=== PATIENT | male | born 1960 | race Caucasian/White ===

== ENCOUNTER 2016-03-19 | Outpatient (CLI) | END 2016-03-19 13:37 | disposition EMS.NT ==

== ENCOUNTER 2016-03-26 16:26 | Emergency (ER) | payer MEDICAID | END 2016-03-26 19:25 | disposition home or self-care (01) | DX: R10.9 Unspecified abdominal pain (principal); I10 Essential (primary) hypertension; F17.200 Nicotine dependence, unspecified, uncomplicated; Z87.828 Personal history of other (healed) physical injury and trauma ==

== ENCOUNTER 2016-06-26 20:47 | Emergency (ER) | payer MEDICAID ==
[2016-06-26] MEDS ORDERED: LORazepam 0.5 MG TABLET PO STA (21:57)
[2016-06-26] MEDS ORDERED: LORazepam 0.5 MG TABLET ONE (21:58)
== END 2016-06-26 22:36 | disposition home or self-care (01) ==
DX: M54.2 Cervicalgia (principal); I10 Essential (primary) hypertension; I85.00 Esophageal varices without bleeding; Z86.73 Personal history of transient ischemic attack (TIA), and cerebral infarction without residual deficits; Z86.010 Personal history of colon polyps; Z87.19 Personal history of other diseases of the digestive system; F17.200 Nicotine dependence, unspecified, uncomplicated
CPT/HCPCS: 99283; A9270

== ENCOUNTER 2016-07-18 14:48 | Outpatient (CLI) | payer MEDICAID | END 2016-07-18 14:49 | disposition critical access hospital (66) | DX: R51 Headache (principal); R42 Dizziness and giddiness | CPT/HCPCS: A0425; A0429 ==

== ENCOUNTER 2016-07-18 15:20 | Emergency (ER) | payer MEDICAID ==
[2016-07-18] MEDS ORDERED: LORazepam 0.5 MG TABLET PO STA (15:38)
[2016-07-18] MEDS ORDERED: LORazepam 0.5 MG TABLET ONE (15:46)
== END 2016-07-18 16:11 | disposition home or self-care (01) ==
DX: R51 Headache (principal); M54.2 Cervicalgia; I10 Essential (primary) hypertension; Z86.73 Personal history of transient ischemic attack (TIA), and cerebral infarction without residual deficits; I85.00 Esophageal varices without bleeding; Z86.010 Personal history of colon polyps; F17.200 Nicotine dependence, unspecified, uncomplicated
CPT/HCPCS: 99283; A9270

== ENCOUNTER 2016-07-20 09:42 | Outpatient (CLI) | payer MEDICAID | END 2016-07-20 09:43 | disposition short-term general hospital (02) | DX: R06.00 Dyspnea, unspecified (principal); R51 Headache | CPT/HCPCS: A0425; A0429 ==

== ENCOUNTER 2016-08-02 19:36 | Outpatient (CLI) | payer MEDICAID | END 2016-08-02 19:37 | disposition short-term general hospital (02) | DX: R42 Dizziness and giddiness (principal); H54.7 Unspecified visual loss; R25.2 Cramp and spasm | CPT/HCPCS: A0425; A0429; A0888 ==

== ENCOUNTER 2016-08-04 00:50 | Outpatient (CLI) | payer MEDICAID | END 2016-08-04 00:51 | disposition short-term general hospital (02) | LOC: EMS 00:50 | PROVIDERS: ATTEND Surgery | DX: R51 Headache (principal); R11.0 Nausea | CPT/HCPCS: A0425; A0429; A0888 ==

== ENCOUNTER 2016-09-27 11:00 | Outpatient (CLI) | payer MEDICAID | END 2016-09-27 11:15 | disposition home or self-care (01) | LOC: RT.N 11:00 | PROVIDERS: ATTEND Family Medicine | DX: R00.2 Palpitations (principal); R55 Syncope and collapse | CPT/HCPCS: 93005 ==

== ENCOUNTER 2016-12-06 09:15 | Outpatient (CLI) | payer MEDICAID | END 2016-12-06 09:30 | disposition home or self-care (01) | LOC: RT.N 09:15 | PROVIDERS: ATTEND Family Medicine | DX: Z01.818 Encounter for other preprocedural examination (principal); R55 Syncope and collapse; R42 Dizziness and giddiness; M50.10 Cervical disc disorder with radiculopathy, unspecified cervical region | CPT/HCPCS: 93005 ==

== ENCOUNTER 2016-12-06 09:54 | Outpatient (CLI) | payer MEDICAID ==
[2016-12-06 14:40] LABS: ALBUMIN/GLOBULIN RATIO 1.4 (1.0-2.2); BILIRUBIN,TOTAL 1.2 mg/dL (0.2-1.0); CALCIUM 8.7 mg/dL (8.5-10.3); CREATININE 0.8 mg/dL (0.6-1.2); POTASSIUM 3.9 mmol/L (3.5-5.0); TOTAL PROTEIN 7.1 g/dL (6.7-8.2)
[2016-12-06 14:57] LABS: CHOL/HDL RATIO 3.1 (<5.0); CHOLESTEROL 169 mg/dL; HDL CHOLESTEROL 54 mg/dL; LDL/HDL RATIO 1.7 (<3.6); TRIGLYCERIDES 105 mg/dL; VLDL CHOLESTEROL 21 mg/dL
[2016-12-06 19:33] LABS: PT - PROTHROMBIN TIME 10.8 secs (9.9-12.6)
[2016-12-06 19:35] LABS: BASOPHILS # (AUTO) 0.1 10^3/uL (0.0-0.1); BASOPHILS % (AUTO) 0.7 %; EOSINOPHILS # (AUTO) 0.3 10^3/uL (0.0-0.7); EOSINOPHILS % (AUTO) 3.4 %; HCT - HEMATOCRIT 50.3 % (42.0-52.0); HGB - HEMOGLOBIN 16.9 g/dL (14.0-18.0); LYMPHOCYTES # (AUTO) 1.4 10^3/uL (1.5-3.5); LYMPHOCYTES % (AUTO) 16.7 %; MEAN CORPUSCULAR HEMOGLOBIN 31.5 pg (27.0-31.0); MEAN CORPUSCULAR HGB CONC 33.5 g/dL (32.0-36.0); MEAN CORPUSCULAR VOLUME 93.9 fL (80.0-94.0); MEAN PLATELET VOLUME 9.7 fL (7.4-11.4); MONOCYTES # (AUTO) 0.6 10^3/uL (0.0-1.0); MONOCYTES % (AUTO) 7.4 %; NEUTROPHILS # (AUTO) 5.8 10^3/uL (1.5-6.6); NEUTROPHILS % (AUTO) 71.8 %; NUCLEATED RED BLOOD CELLS AUTO 0.1 /100WBC; RED BLOOD COUNT 5.36 10^6/uL (4.70-6.10); RED CELL DISTRIBUTION WIDTH 13.4 % (12.0-15.0); UNCORRECTED WHITE BLOOD COUNT 8.1 x10^3/uL; WHITE BLOOD COUNT 8.1 x10^3/uL (4.8-10.8)
[2016-12-06 19:43] LABS: PARTIAL THROMBOPLASTIN TIME 26.7 secs (24.9-33.3)
== END 2016-12-06 09:55 | disposition home or self-care (01) ==
LOC: LAB.N 09:54
PROVIDERS: ATTEND Family Medicine
DX: Z01.818 Encounter for other preprocedural examination (principal); M50.10 Cervical disc disorder with radiculopathy, unspecified cervical region; I10 Essential (primary) hypertension; R55 Syncope and collapse; R42 Dizziness and giddiness; F17.200 Nicotine dependence, unspecified, uncomplicated
CPT/HCPCS: 36415; 71020; 80053; 80061; 85025; 85610; 85730

== ENCOUNTER 2016-12-06 09:58 | Outpatient (CLI) | payer MEDICAID ==
--- NOTE | 2016-12-06 18:52 | XRAY Report ---
CHEST, TWO VIEWS: 12/06/2016 HISTORY: Preop. COMPARISON: 03/26/2016 FINDINGS: The lungs are clear. There is no pleural fluid or pneumothorax. Heart size normal. Nega tive bony structures. IMPRESSION: NEGATIVE TWO-VIEW CHEST X-RAY. JOB #: [id number] EXT JOB #:[id number]
== END 2016-12-06 09:59 | disposition home or self-care (01) ==
LOC: DI.N 09:58
PROVIDERS: ATTEND Family Medicine
DX: Z01.818 Encounter for other preprocedural examination (principal); M50.10 Cervical disc disorder with radiculopathy, unspecified cervical region; R55 Syncope and collapse; R42 Dizziness and giddiness
CPT/HCPCS: 71020

== ENCOUNTER 2017-11-08 10:52 | Outpatient (CLI) | payer MEDICAID | END 2017-11-08 10:53 | disposition critical access hospital (66) | LOC: EMS 10:52 | PROVIDERS: ATTEND Surgery | DX: R07.9 Chest pain, unspecified (principal); R53.1 Weakness | CPT/HCPCS: A0425; A0427; A0999 ==

== ENCOUNTER 2017-11-08 11:21 | Emergency (ER) | payer MEDICAID ==
[2017-11-08 12:43] LABS: BASOPHILS % (AUTO) 0.6 %; EOSINOPHILS # (AUTO) 0.3 10^3/uL (0.0-0.7); EOSINOPHILS % (AUTO) 3.4 %; HGB - HEMOGLOBIN 17.3 g/dL (14.0-18.0); LYMPHOCYTES # (AUTO) 1.2 10^3/uL (1.5-3.5); LYMPHOCYTES % (AUTO) 14.8 %; MEAN CORPUSCULAR HEMOGLOBIN 32.6 pg (27.0-31.0); MEAN CORPUSCULAR HGB CONC 34.7 g/dL (32.0-36.0); MEAN PLATELET VOLUME 8.6 fL (7.4-11.4); MONOCYTES # (AUTO) 0.6 10^3/uL (0.0-1.0); MONOCYTES % (AUTO) 8.1 %; NEUTROPHILS # (AUTO) 5.7 10^3/uL (1.5-6.6); NEUTROPHILS % (AUTO) 73.1 %; PLT - PLATELET COUNT 155 10^3/uL (130-450); RED BLOOD COUNT 5.29 10^6/uL (4.70-6.10); RED CELL DISTRIBUTION WIDTH 13.6 % (12.0-15.0); WHITE BLOOD COUNT 7.8 x10^3/uL (4.8-10.8)
[2017-11-08 12:58] LABS: ALBUMIN 3.9 g/dL (3.2-5.5); ALBUMIN/GLOBULIN RATIO 1.3 (1.0-2.2); CALCIUM 9.2 mg/dL (8.5-10.3); CREATININE 0.9 mg/dL (0.6-1.2); TOTAL PROTEIN 6.8 g/dL (6.7-8.2)
--- NOTE | 2017-11-08 13:30 | XRAY Report ---
Reason: CP Procedure Date: 11/08/2017 Accession Number: [id number] / [id number] Procedure: XR - Chest 2 View X-Ray CPT Code: 87601 FULL RESULT: EXAM: CHEST RADIOGRAPHY EXAM DATE: 11/08/2017 12:52 PM. CLINICAL HISTORY: Chest pain. COMPARISON: 12/06/2016. TECHNIQUE: 2 views. FINDINGS: Lungs/Pleura: No focal opacities evident. No pleural effusion. No pneumothorax. Normal volumes. Mediastinum: Heart and mediastinal contours are unremarkable. Other: Postoperative changes are present in the lower cervical spine. IMPRESSION: 1. No acute pulmonary process. RADIA
[2017-11-08] MEDS ORDERED: ACETAMINOPHEN 500 MG TABLET PO STA (14:40)
[2017-11-08] MEDS ORDERED: GI COCKTAIL 120 ML BOTTLE PO ONE (15:00)
--- NOTE | 2017-11-08 15:45 | ED Physician Documentation ---
PD HPI CHEST PAIN - Stated complaint Stated Complaint: CHEST PAIN - Chief complaint Chief Complaint: Abd Pain - History obtained from History obtained from: Patient - Additional information Additional information: 57-year-old male presents the emergency department with intermittent episodes of sharp chest pain over the past 2 days. The patient had an episode yesterday morning which occurs suddenly and resolved spontaneously. The patient had another episode earlier this morning after drinking coffee and reported a sharp stabbing pain with a hard heartbeat. The patient currently has no pain in the sensation of palpitations have resolved. The patient denies diaphoresis, radiation, dyspnea on exertion, URI symptoms, shortness of breath or fever. Symptoms are described as moderate when they occurred. Presently the patient has no active symptoms. No other associated symptoms Review of Systems Constitutional: denies: Fever, Chills Eyes: denies: Discharge Ears: denies: Ear pain Nose: denies: Congestion Throat: denies: Sore throat Cardiac: reports: Chest pain / pressure, Palpitations Respiratory: denies: Dyspnea, Cough, Wheezing GI: denies: Abdominal Pain, Nausea, Vomiting : denies: Dysuria Skin: denies: Rash Musculoskeletal: denies: Neck pain Neurologic: denies: Generalized weakness Immunocompromised: denies: Chemotherapy PD PAST MEDICAL HISTORY - Past Medical History Cardiovascular: Hypertension Respiratory: None Neuro: CVA Endocrine/Autoimmune: None GI: GERD, Colon polyps, Diverticulitis : None HEENT: None Psych: Anxiety Musculoskeletal: None - Past Surgical History Past Surgical History: Yes General: Colonoscopy, Other Ortho: Spine surgery Cardiovascular: Vascular surgery - Present Medications Home Medications: Ambulatory Orders Medication Instructions Recorded Confirmed Lisinopril 5 mg PO DAILY 01/31/16 07/18/16 Aspirin [Adult Aspirin Regimen] 1 tab PO DAILY 11/08/17 11/08/17 - Allergies Allergies/Adverse Reactions: Allergies Allergy/AdvReac Type Severity Reaction Status Date / Time bupropion AdvReac Nausea Verified 11/08/17 11:31 citalopram AdvReac Nausea Verified 11/08/17 11:31 fluoxetine AdvReac Nausea Verified 11/08/17 11:31 - Social History Does the pt smoke?: Yes Smoking Status: Current every day smoker Does the pt drink ETOH?: Yes Does the pt have substance abuse?: No - Immunizations Immunizations are current?: Yes - POLST Patient has POLST: No PD ED PE NORMAL - General General: Alert and oriented X 3, No acute distress - HEENT HEENT: Atraumatic, PERRL, EOMI, Ears normal, Moist mucous membranes - Neck Neck: Supple, no meningeal sign - Cardiac Cardiac: RRR, Strong equal pulses - Respiratory Respiratory: No respiratory distress, Clear bilaterally - Abdomen Abdomen: Soft - Derm Derm: Normal color, No rash - Extremities Extremities: No deformity, No tenderness to palpate, Normal ROM s pain - Neuro Neuro: Alert and oriented X 3, No motor deficit - Psych Psych: Normal mood Results - Vitals Vitals: Vital Signs - 24 hr 11/08/17 11/08/17 11/08/17 11:22 12:03 13:27 Temperature 36.6 C Heart Rate 74 75 73 Respiratory 18 16 16 Rate Blood Pressure 176/116 H 154/106 H 148/103 H O2 Saturation 95 96 11/08/17 11/08/17 14:37 15:00 Temperature Heart Rate 71 68 Respiratory 16 16 Rate Blood Pressure 180/99 H 152/112 H O2 Saturation 97 95 Oxygen O2 Source Room air - EKG (time done) 11:28 PM Rate: Rate (enter#) Rhythm: NSR Intervals: Normal AL, QRS normal QRS: Normal Ischemia: Normal ST segments Other comments: Other comments (Normal sinus rhythm with no acute ischemic changes) - Labs Labs: Laboratory Tests 11/08/17 11/08/17 11/08/17 12:38 12:38 12:38 WBC 7.8 RBC 5.29 Hgb 17.3 Hct 49.8 MCV 94.0 MCH 32.6 H MCHC 34.7 RDW 13.6 Plt Count 155 MPV 8.6 Neut # (Auto) 5.7 Lymph # (Auto) 1.2 L [place] # (Auto) 0.6 Eos # (Auto) 0.3 Baso # (Auto) 0.0 Absolute Nucleated RBC 0.00 Nucleated RBC % 0.0 D-Dimer Sodium 139 Potassium 4.5 Chloride 104 Carbon Dioxide 27 Anion Gap 8.0 BUN 14 Creatinine 0.9 Estimated GFR (MDRD) 87 L Glucose 105 H Calcium 9.2 Total Bilirubin 1.0 AST 20 ALT 21 Alkaline Phosphatase 72 Troponin I < 0.04 Total Protein 6.8 Albumin 3.9 Globulin 2.9 Albumin/Globulin Ratio 1.3 Lipase 26 11/08/17 11/08/17 12:38 15:20 WBC RBC Hgb Hct MCV MCH MCHC RDW Plt Count MPV Neut # (Auto) Lymph # (Auto) [place] # (Auto) Eos # (Auto) Baso # (Auto) Absolute Nucleated RBC Nucleated RBC % D-Dimer < 200.0 L Sodium Potassium Chloride Carbon Dioxide Anion Gap BUN Creatinine Estimated GFR (MDRD) Glucose Calcium Total Bilirubin AST ALT Alkaline Phosphatase Troponin I < 0.04 Total Protein Albumin Globulin Albumin/Globulin Ratio Lipase - Rads (name of study) Chext XR Radiology: Final report received (1. No acute pulmonary process. ) PD MEDICAL DECISION MAKING - ED course ED course: The patient's workup does not reveal an acute etiology to explain his pain. The patient is on the low risk side per the heart score, the patient also had a stress test within the last 12 months at an outside facility that according to him was negative. The patient currently would prefer further workup as an outpatient. I recommended that he will need a repeat stress test to rule out coronary artery disease. The patient understands and agrees. Also, I suggested that this may be secondary to gastric etiology. The patient understands and agrees. I discussed warning signs and recommended returning to the emergency department immediately for worsening or any concerns. - Sepsis Event Vital Signs: Vital Signs - 24 hr 11/08/17 11/08/17 11/08/17 11:22 12:03 13:27 Temperature 36.6 C Heart Rate 74 75 73 Respiratory 18 16 16 Rate Blood Pressure 176/116 H 154/106 H 148/103 H O2 Saturation 95 96 11/08/17 11/08/17 14:37 15:00 Temperature Heart Rate 71 68 Respiratory 16 16 Rate Blood Pressure 180/99 H 152/112 H O2 Saturation 97 95 Oxygen O2 Source Room air Departure - Departure Disposition: Home, Self Care Clinical Impression: Chest pain Qualifiers: Chest pain type: unspecified Qualified Code(s): R07.9 - Chest pain, unspecified Condition: Good Instructions: ED Chest Pain [facility] Follow-Up: Manjeet Angel MD [Primary Care Provider] - Within 3 Days (Please ask your primary care physician to arrange for an outpatient stress test, echocardiogram and possibly referral to GI for endoscopy.) Comments: Please return to the emergency department immediately for worsening symptoms or any concerns
[2017-11-08 16:37] VITALS: BP 144/102
== END 2017-11-08 16:42 | disposition home or self-care (01) ==
LOC: EDUNIT# → ED 11:21
DX: R07.9 Chest pain, unspecified (principal); I10 Essential (primary) hypertension; F17.200 Nicotine dependence, unspecified, uncomplicated
CPT/HCPCS: 36415; 71046; 80053; 83690; 84484; 85025; 85379; 93005; 99284; A9270

== ENCOUNTER 2017-12-18 09:46 | Outpatient (CLI) | payer MEDICAID ==
[2017-12-18 13:09] LABS: ALBUMIN 4.1 g/dL (3.2-5.5); ALBUMIN/GLOBULIN RATIO 1.4 (1.0-2.2); ALKALINE PHOSPHATASE 83 IU/L (42-121); ALT ALANINE AMINOTRANSFERASE 31 IU/L (10-60); AST ASPARTATE AMINOTRANSFERASE 23 IU/L (10-42); BUN - BLOOD UREA NITROGEN 15 mg/dL (6-20); CALCIUM 8.9 mg/dL (8.5-10.3); CARBON DIOXIDE - CO2 24 mmol/L (21-32); CHLORIDE 104 mmol/L (101-111); CHOL/HDL RATIO 2.7 (<5.0); CHOLESTEROL 145 mg/dL; CREATININE 0.9 mg/dL (0.6-1.2); GFR - MDRD 87 (>89); GLUCOSE 98 mg/dL (70-100); HDL CHOLESTEROL 53 mg/dL; LDL CHOLESTEROL,CALCULATED 68 mg/dL; LDL/HDL RATIO 1.3 (<3.6); LIPASE 28 U/L (22-51); SODIUM 137 mmol/L (135-145); TOTAL PROTEIN 7.1 g/dL (6.7-8.2); VLDL CHOLESTEROL 24 mg/dL
[2017-12-18 13:10] LABS: BASOPHILS % (AUTO) 0.5 %; EOSINOPHILS # (AUTO) 0.3 10^3/uL (0.0-0.7); EOSINOPHILS % (AUTO) 2.9 %; HGB - HEMOGLOBIN 17.9 g/dL (14.0-18.0); LYMPHOCYTES # (AUTO) 1.5 10^3/uL (1.5-3.5); LYMPHOCYTES % (AUTO) 17.3 %; MEAN CORPUSCULAR HEMOGLOBIN 33.3 pg (27.0-31.0); MEAN CORPUSCULAR VOLUME 95.2 fL (80.0-94.0); MEAN PLATELET VOLUME 9.1 fL (7.4-11.4); MONOCYTES # (AUTO) 0.6 10^3/uL (0.0-1.0); MONOCYTES % (AUTO) 7.3 %; NEUTROPHILS # (AUTO) 6.3 10^3/uL (1.5-6.6); PLT - PLATELET COUNT 150 10^3/uL (130-450); RED BLOOD COUNT 5.36 10^6/uL (4.70-6.10); RED CELL DISTRIBUTION WIDTH 13.6 % (12.0-15.0); WHITE BLOOD COUNT 8.7 x10^3/uL (4.8-10.8)
== END 2017-12-18 09:47 | disposition home or self-care (01) ==
LOC: LAB.WCP 09:46
PROVIDERS: ATTEND Physician Assistant Medical
DX: Z00.00 Encounter for general adult medical examination without abnormal findings (principal); R10.13 Epigastric pain
CPT/HCPCS: 36415; 80050; 80061; 83690; 83721

== ENCOUNTER 2017-12-30 05:07 | Outpatient (CLI) | payer MEDICAID | END 2017-12-30 05:08 | disposition short-term general hospital (02) | LOC: EMS 05:07 | PROVIDERS: ATTEND Surgery | DX: R09.89 Other specified symptoms and signs involving the circulatory and respiratory systems (principal); K14.6 Glossodynia | CPT/HCPCS: A0425; A0427; A0888; A0999 ==

== ENCOUNTER 2018-06-04 08:00 | Outpatient (CLI) | payer MEDICAID ==
[2018-06-04 19:07] LABS: BASOPHILS % (AUTO) 0.5 %; EOSINOPHILS # (AUTO) 0.3 10^3/uL (0.0-0.7); EOSINOPHILS % (AUTO) 3.2 %; HGB - HEMOGLOBIN 17.4 g/dL (14.0-18.0); LYMPHOCYTES # (AUTO) 1.6 10^3/uL (1.5-3.5); LYMPHOCYTES % (AUTO) 17.1 %; MEAN CORPUSCULAR HEMOGLOBIN 31.2 pg (27.0-31.0); MEAN CORPUSCULAR HGB CONC 33.6 g/dL (32.0-36.0); MEAN CORPUSCULAR VOLUME 92.9 fL (80.0-94.0); MEAN PLATELET VOLUME 9.5 fL (7.4-11.4); MONOCYTES # (AUTO) 0.8 10^3/uL (0.0-1.0); MONOCYTES % (AUTO) 8.9 %; NEUTROPHILS # (AUTO) 6.5 10^3/uL (1.5-6.6); NEUTROPHILS % (AUTO) 70.3 %; PLT - PLATELET COUNT 167 10^3/uL (130-450); RED BLOOD COUNT 5.58 10^6/uL (4.70-6.10); RED CELL DISTRIBUTION WIDTH 12.9 % (12.0-15.0); WHITE BLOOD COUNT 9.2 x10^3/uL (4.8-10.8)
[2018-06-04 19:35] LABS: ALBUMIN 4.3 g/dL (3.2-5.5); BILIRUBIN,DIRECT 0.3 mg/dL (0.1-0.5); BILIRUBIN,TOTAL 0.8 mg/dL (0.2-1.0)
== END 2018-06-04 23:59 | disposition home or self-care (01) ==
LOC: LAB.N 08:00
PROVIDERS: ATTEND Physician Assistant Medical
DX: R10.11 Right upper quadrant pain (principal); F10.10 Alcohol abuse, uncomplicated
CPT/HCPCS: 36415; 80076; 85025

== ENCOUNTER 2018-09-21 19:21 | Outpatient (CLI) | payer MEDICAID | END 2018-09-21 19:22 | disposition short-term general hospital (02) | LOC: EMS 19:21 | PROVIDERS: ATTEND Surgery | DX: R22.0 Localized swelling, mass and lump, head (principal); R11.0 Nausea | CPT/HCPCS: A0425; A0427; A0999 ==

== ENCOUNTER 2018-09-28 12:56 | Outpatient (CLI) | payer MEDICAID | END 2018-09-28 12:57 | disposition short-term general hospital (02) | LOC: EMS 12:56 | PROVIDERS: ATTEND Surgery | DX: R22.0 Localized swelling, mass and lump, head (principal) | CPT/HCPCS: A0425; A0427 ==

== ENCOUNTER 2019-01-07 20:49 | Outpatient (CLI) | payer MEDICAID | END 2019-01-07 20:50 | disposition short-term general hospital (02) | LOC: EMS 20:49 | PROVIDERS: ATTEND Surgery | DX: R20.0 Anesthesia of skin (principal); R42 Dizziness and giddiness; M54.2 Cervicalgia; R51 Headache | CPT/HCPCS: A0425; A0429; A0999 ==

== ENCOUNTER 2019-03-19 05:55 | Outpatient (CLI) | payer MEDICARE, MEDICAID | END 2019-03-19 05:56 | disposition short-term general hospital (02) | LOC: EMS 05:55 | PROVIDERS: ATTEND Surgery | DX: R22.0 Localized swelling, mass and lump, head (principal) | CPT/HCPCS: A0425; A0429 ==

== ENCOUNTER 2019-04-01 08:41 | Outpatient (CLI) | payer MEDICARE, MEDICAID | END 2019-04-01 08:42 | disposition critical access hospital (66) | LOC: EMS 08:41 | PROVIDERS: ATTEND Surgery | DX: R60.0 Localized edema (principal) | CPT/HCPCS: A0425; A0427 ==

== ENCOUNTER 2019-04-01 09:11 | Emergency (ER) | payer MEDICARE, MEDICAID ==
--- NOTE | 2019-04-01 09:59 | ED Physician Documentation ---
PD HPI HEENT - Stated complaint Stated Complaint: ALLERGIC RX - Chief complaint Chief Complaint: Allergic Rx - History obtained from History obtained from: Patient - History of Present Illness Timing - onset: Last night Timing - details: Waxing and waning Location: Throat (feeling of swelling of left lower lip, lateral tongue and some to back of throat last night, then improved but feeling some swelling again today. Took Benadryl and feels it helped some.), Mouth Associated symptoms: No: Fever, Congestion, Swollen nodes Similar symptoms before: Diagnosis (had marked angioedema in the past, but was thought to be from Lisinopril he was taking at the time. That med was discontinued. He is on HCTZ.) Recently seen: Clinic (he says he saw an annual giving officer after last episode couple months ago, and told to take benadryl if happens. No allergy testing done, per patient.) Review of Systems Constitutional: denies: Fever Nose: reports: Other (mild edema left lower lip, uvula and lateral left side of tongue. He is able to talk and breath normally.). denies: Rhinorrhea / runny nose, Congestion, Sinus pressure / pain Throat: denies: Sore throat Respiratory: denies: Dyspnea, Cough GI: denies: Abdominal Pain, Nausea, Vomiting, Diarrhea Musculoskeletal: denies: Neck pain, Back pain PD PAST MEDICAL HISTORY - Past Medical History Past Medical History: Yes Cardiovascular: Hypertension Respiratory: None Neuro: CVA Endocrine/Autoimmune: None GI: GERD, Colon polyps, Diverticulitis : None HEENT: None Psych: Anxiety Musculoskeletal: None - Past Surgical History Past Surgical History: Yes General: Colonoscopy, Other Ortho: Spine surgery Cardiovascular: Vascular surgery - Present Medications Home Medications: Ambulatory Orders Medication Instructions Recorded Confirmed lisinopriL [Lisinopril] 5 mg PO DAILY 01/31/16 07/18/16 Aspirin [Adult Aspirin Regimen] 1 tab PO DAILY 11/08/17 11/08/17 Cetirizine [ZyrTEC] 10 mg PO DAILY #30 tablet 04/01/19 dexAMETHasone [Decadron] 4 mg PO DAILY #5 tablet 04/01/19 - Allergies Allergies/Adverse Reactions: Allergies Allergy/AdvReac Type Severity Reaction Status Date / Time bupropion AdvReac Nausea Verified 11/08/17 11:31 citalopram AdvReac Nausea Verified 11/08/17 11:31 fluoxetine AdvReac Nausea Verified 11/08/17 11:31 - Social History Does the pt smoke?: Yes Smoking Status: Current every day smoker Does the pt drink ETOH?: Yes Does the pt have substance abuse?: No - Immunizations Immunizations are current?: Yes - POLST Patient has POLST: No PD ED PE NORMAL - Vitals Vital signs reviewed: Yes - General General: Alert and oriented X 3, No acute distress, Well developed/nourished - HEENT HEENT: Pharynx benign, Other (mild edema for uvula, left side of tongue and left lower lip. ) - Neck Neck: Supple, no meningeal sign, No adenopathy - Cardiac Cardiac: RRR, No murmur - Respiratory Respiratory: Clear bilaterally - Abdomen Abdomen: Soft, Non tender Results - Vitals Vitals: Vital Signs - 24 hr 04/01/19 04/01/19 04/01/19 09:20 09:44 11:25 Temperature 36.4 C L 36.5 C Heart Rate 140 H 74 71 Respiratory 14 14 18 Rate Blood Pressure 151/115 H 137/102 H 143/103 H O2 Saturation 96 93 95 Oxygen O2 Source Room air - Labs Labs: Laboratory Tests 04/01/19 04/01/19 10:41 10:41 WBC 10.2 RBC 5.29 Hgb 18.0 Hct 51.2 MCV 96.8 H MCH 34.0 H MCHC 35.2 RDW 13.1 Plt Count 145 MPV 10.3 Neut # (Auto) 8.0 H Lymph # (Auto) 1.2 L [place] # (Auto) 0.7 Eos # (Auto) 0.2 Baso # (Auto) 0.0 Absolute Nucleated RBC 0.00 Nucleated RBC % 0.0 Sodium 141 Potassium 3.7 Chloride 105 Carbon Dioxide 27 Anion Gap 9.0 BUN 15 Creatinine 1.1 Estimated GFR (MDRD) 69 L Glucose 98 Calcium 9.2 Magnesium 2.0 Total Bilirubin 0.8 AST 28 ALT 40 Alkaline Phosphatase 56 C-Reactive Protein < 1.0 Total Protein 6.8 Albumin 4.1 Globulin 2.7 Albumin/Globulin Ratio 1.5 Lipase 37 PD MEDICAL DECISION MAKING - ED course Complexity details: re-evaluated patient (feeling improved with less swelling after meds and time. HR improved), considered differential, d/w patient Departure - Departure Disposition: 01 Home, Self Care Clinical Impression: Angioedema Qualifiers: Encounter type: initial encounter Qualified Code(s): T78.3XXA - Angioneurotic edema, initial encounter Condition: Stable Record reviewed to determine appropriate education?: Yes Instructions: ED Angioedema Follow-Up: Sam Patel PA-C [Primary Care Provider] - Prescriptions: Cetirizine [ZyrTEC] 10 mg PO DAILY #30 tablet dexAMETHasone [Decadron] 4 mg PO DAILY #5 tablet Comments: Continue the Decadron for another 5 days if there is still any hint of swelling into tomorrow. Use Benadryl antihistamine every 6 hours if needed for continued swelling. Cetirizine long-acting daily antihistamine daily for 3 to 4 weeks. Follow-up with the annual giving officer you had seen, call for an appointment. With another episode now, the question would be whether to undergo some more general allergy testing or what other potential treatments. Some blood test to try to help distinguish the type of allergic reaction/swelling will result in day or 2 but in the short-term did not change the treatment above. Discharge Date/Time: 04/01/19 13:15
[2019-04-01] MEDS ORDERED: SODIUM CHLORIDE 0.9% 1,000 ML IV ONE (10:15)
[2019-04-01] MEDS ORDERED: diphenhydrAMINE INJ 50 MG/ML VIAL IVP STA (10:16)
[2019-04-01] MEDS ORDERED: KETOROLAC 15 MG/ML VIAL IVP STA (10:16)
[2019-04-01] MEDS ORDERED: DEXAMETHASONE 10 MG/ML VIAL IVP STA (10:16)
[2019-04-01 10:48] LABS: BASOPHILS % (AUTO) 0.4 %; EOSINOPHILS # (AUTO) 0.2 10^3/uL (0.0-0.7); EOSINOPHILS % (AUTO) 1.9 %; LYMPHOCYTES # (AUTO) 1.2 10^3/uL (1.5-3.5); LYMPHOCYTES % (AUTO) 11.6 %; MEAN CORPUSCULAR HGB CONC 35.2 g/dL (32.0-36.0); MEAN CORPUSCULAR VOLUME 96.8 fL (80.0-94.0); MEAN PLATELET VOLUME 10.3 fL (7.4-11.4); MONOCYTES # (AUTO) 0.7 10^3/uL (0.0-1.0); MONOCYTES % (AUTO) 7.2 %; NEUTROPHILS % (AUTO) 78.4 %; PLT - PLATELET COUNT 145 10^3/uL (130-450); RED BLOOD COUNT 5.29 10^6/uL (4.70-6.10); RED CELL DISTRIBUTION WIDTH 13.1 % (12.0-15.0); WHITE BLOOD COUNT 10.2 x10^3/uL (4.8-10.8)
[2019-04-01 11:08] LABS: ALBUMIN 4.1 g/dL (3.2-5.5); ALBUMIN/GLOBULIN RATIO 1.5 (1.0-2.2); ALKALINE PHOSPHATASE 56 IU/L (42-121); ALT ALANINE AMINOTRANSFERASE 40 IU/L (10-60); AST ASPARTATE AMINOTRANSFERASE 28 IU/L (10-42); BILIRUBIN,TOTAL 0.8 mg/dL (0.2-1.0); BUN - BLOOD UREA NITROGEN 15 mg/dL (6-20); CALCIUM 9.2 mg/dL (8.5-10.3); CARBON DIOXIDE - CO2 27 mmol/L (21-32); CHLORIDE 105 mmol/L (101-111); CREATININE 1.1 mg/dL (0.6-1.2); GFR - MDRD 69 (>89); GLUCOSE 98 mg/dL (70-100); LIPASE 37 U/L (22-51); SODIUM 141 mmol/L (135-145); TOTAL PROTEIN 6.8 g/dL (6.7-8.2)
[2019-04-01 11:10] LABS: CRP - C-REACTIVE PROTEIN < 1.0 mg/dL (0-1.0)
[2019-04-01 12:08] VITALS: BP 143/103
[2019-04-03 10:39] LABS: COMPLEMENT COMPONENT C4C 29 mg/dL (15-53)
== END 2019-04-01 13:15 | disposition home or self-care (01) ==
LOC: EDUNIT# → ED 09:11
DX: T78.3XXA Angioneurotic edema, initial encounter (principal); X58.XXXA Exposure to other specified factors, initial encounter; I10 Essential (primary) hypertension; F17.200 Nicotine dependence, unspecified, uncomplicated; Z79.82 Long term (current) use of aspirin
CPT/HCPCS: 36415; 80053; 83690; 83735; 84443; 85025; 86140; 86160; 86161; 96361; 96374; 96375; 99283; 99284; J1200

== ENCOUNTER 2019-04-16 10:53 | Outpatient (CLI) | payer MEDICARE, MEDICAID | END 2019-04-16 10:54 | disposition short-term general hospital (02) | LOC: EMS 10:53 | PROVIDERS: ATTEND Surgery | DX: R09.89 Other specified symptoms and signs involving the circulatory and respiratory systems (principal); R11.0 Nausea | CPT/HCPCS: A0425; A0427; A0888 ==

== ENCOUNTER 2019-06-12 10:35 | Outpatient (CLI) | payer MEDICARE, MEDICAID | END 2019-06-12 10:36 | disposition short-term general hospital (02) | LOC: EMS 10:35 | PROVIDERS: ATTEND Surgery | DX: R22.0 Localized swelling, mass and lump, head (principal) | CPT/HCPCS: A0425; A0427 ==

== ENCOUNTER 2019-06-21 05:22 | Outpatient (CLI) | payer MEDICARE, MEDICAID | END 2019-06-21 05:23 | disposition short-term general hospital (02) | LOC: EMS 05:22 | PROVIDERS: ATTEND Surgery | DX: R60.0 Localized edema (principal) | CPT/HCPCS: A0425; A0427 ==

== ENCOUNTER 2019-07-29 04:26 | Outpatient (CLI) | payer MEDICARE, MEDICAID | END 2019-07-29 04:27 | disposition short-term general hospital (02) | LOC: EMS 04:26 | PROVIDERS: ATTEND Surgery | DX: M79.652 Pain in left thigh (principal); M79.89 Other specified soft tissue disorders | CPT/HCPCS: A0425; A0429; A0888 ==

== ENCOUNTER 2019-08-16 14:10 | Outpatient (CLI) | payer MEDICARE, MEDICAID | END 2019-08-16 14:11 | disposition critical access hospital (66) | LOC: EMS 14:10 | PROVIDERS: ATTEND Surgery | DX: R53.1 Weakness (principal); R42 Dizziness and giddiness; R10.9 Unspecified abdominal pain; Z72.89 Other problems related to lifestyle | CPT/HCPCS: A0425; A0429 ==

== ENCOUNTER 2019-09-06 08:55 | Outpatient (CLI) | payer MEDICARE, MEDICAID | END 2019-09-06 08:56 | disposition short-term general hospital (02) | LOC: EMS 08:55 | PROVIDERS: ATTEND Surgery | DX: R10.811 Right upper quadrant abdominal tenderness (principal); R20.0 Anesthesia of skin; R00.0 Tachycardia, unspecified; F41.9 Anxiety disorder, unspecified; Z72.89 Other problems related to lifestyle | CPT/HCPCS: A0425; A0429 ==

== ENCOUNTER 2019-09-18 06:28 | Outpatient (CLI) | payer MEDICARE, MEDICAID | END 2019-09-18 06:29 | disposition short-term general hospital (02) | LOC: EMS 06:28 | PROVIDERS: ATTEND Surgery | DX: R60.0 Localized edema (principal) | CPT/HCPCS: A0425; A0429 ==

== ENCOUNTER 2019-12-01 19:43 | Outpatient (CLI) | payer MEDICARE, MEDICAID | END 2019-12-01 19:44 | disposition short-term general hospital (02) | LOC: EMS 19:43 | PROVIDERS: ATTEND Surgery | DX: R10.30 Lower abdominal pain, unspecified (principal); Z72.89 Other problems related to lifestyle | CPT/HCPCS: A0425; A0429 ==

== ENCOUNTER 2019-12-26 12:15 | Outpatient (CLI) | payer MEDICARE, MEDICAID | END 2019-12-26 12:16 | disposition short-term general hospital (02) | LOC: EMS 12:15 | PROVIDERS: ATTEND Surgery | DX: R53.1 Weakness (principal) | CPT/HCPCS: A0425; A0429 ==

== ENCOUNTER 2020-03-16 11:54 | Outpatient (CLI) | payer MEDICARE, MEDICAID ==
[2020-03-16 19:07] LABS: INR 1.2 (0.8-1.2); PT - PROTHROMBIN TIME 12.8 secs (9.9-12.6)
[2020-03-16 19:11] LABS: ALBUMIN 3.2 g/dL (3.2-5.5); ALBUMIN/GLOBULIN RATIO 0.9 (1.0-2.2); BILIRUBIN,TOTAL 1.5 mg/dL (0.2-1.0); CALCIUM 9.1 mg/dL (8.5-10.3); TOTAL PROTEIN 6.6 g/dL (6.7-8.2)
[2020-03-16 19:22] LABS: BASOPHILS % (AUTO) 0.5 %; EOSINOPHILS # (AUTO) 0.2 10^3/uL (0.0-0.7); EOSINOPHILS % (AUTO) 2.6 %; HGB - HEMOGLOBIN 14.4 g/dL (14.0-18.0); LYMPHOCYTES # (AUTO) 1.5 10^3/uL (1.5-3.5); LYMPHOCYTES % (AUTO) 17.4 %; MEAN CORPUSCULAR HEMOGLOBIN 32.3 pg (27.0-31.0); MEAN CORPUSCULAR HGB CONC 32.6 g/dL (32.0-36.0); MEAN CORPUSCULAR VOLUME 99.1 fL (80.0-94.0); MEAN PLATELET VOLUME 11.2 fL (7.4-11.4); MONOCYTES # (AUTO) 0.7 10^3/uL (0.0-1.0); MONOCYTES % (AUTO) 8.7 %; NEUTROPHILS # (AUTO) 5.9 10^3/uL (1.5-6.6); NEUTROPHILS % (AUTO) 70.4 %; PLT - PLATELET COUNT 132 10^3/uL (130-450); RED BLOOD COUNT 4.46 10^6/uL (4.70-6.10); WHITE BLOOD COUNT 8.4 x10^3/uL (4.8-10.8)
[2020-03-16 19:28] LABS: FERRITIN 205.9 ng/mL (23.9-336.2)
[2020-03-17 12:27] LABS: HEPATITIS C ANTIBODY NON-REACTIVE (NON-REACTIVE)
== END 2020-03-16 23:59 | disposition home or self-care (01) ==
LOC: LAB.R 11:54
PROVIDERS: ATTEND Internal Medicine
DX: K74.60 Unspecified cirrhosis of liver (principal); L03.311 Cellulitis of abdominal wall; Z87.19 Personal history of other diseases of the digestive system
CPT/HCPCS: 36415; 80053; 82105; 82607; 82728; 83540; 84466; 85025; 85610; 86317; 86704; 86803

== ENCOUNTER 2020-03-16 18:46 | Outpatient (CLI) | payer MEDICARE, MEDICAID | END 2020-03-16 23:59 | disposition home or self-care (01) | LOC: LAB.R 18:46 | PROVIDERS: ATTEND Internal Medicine | DX: K74.60 Unspecified cirrhosis of liver (principal) | CPT/HCPCS: 84443 ==

== ENCOUNTER 2020-05-05 11:50 | Outpatient (CLI) | payer MEDICARE, MEDICAID ==
[2020-05-05 18:37] LABS: BASOPHILS % (AUTO) 0.3 %; EOSINOPHILS # (AUTO) 0.1 10^3/uL (0.0-0.7); EOSINOPHILS % (AUTO) 1.3 %; HGB - HEMOGLOBIN 15.5 g/dL (14.0-18.0); LYMPHOCYTES # (AUTO) 1.4 10^3/uL (1.5-3.5); LYMPHOCYTES % (AUTO) 15.4 %; MEAN CORPUSCULAR HEMOGLOBIN 32.7 pg (27.0-31.0); MEAN CORPUSCULAR HGB CONC 33.8 g/dL (32.0-36.0); MEAN CORPUSCULAR VOLUME 96.6 fL (80.0-94.0); MEAN PLATELET VOLUME 10.9 fL (7.4-11.4); MONOCYTES % (AUTO) 10.6 %; NEUTROPHILS # (AUTO) 6.8 10^3/uL (1.5-6.6); NEUTROPHILS % (AUTO) 72.1 %; PLT - PLATELET COUNT 114 10^3/uL (130-450); RED BLOOD COUNT 4.74 10^6/uL (4.70-6.10); RED CELL DISTRIBUTION WIDTH 13.5 % (12.0-15.0); WHITE BLOOD COUNT 9.4 x10^3/uL (4.8-10.8)
[2020-05-05 18:55] LABS: ALBUMIN 3.8 g/dL (3.2-5.5); BILIRUBIN,TOTAL 1.3 mg/dL (0.2-1.0); CALCIUM 9.4 mg/dL (8.5-10.3); CREATININE 1.2 mg/dL (0.6-1.2); TOTAL PROTEIN 7.6 g/dL (6.7-8.2)
[2020-05-06 12:31] LABS: HEPATITIS B SURFACE ANTIGEN NON-REACTIVE (NON-REACTIVE)
== END 2020-05-05 23:59 | disposition home or self-care (01) ==
LOC: LAB.R 11:50
PROVIDERS: ATTEND Internal Medicine
DX: K70.31 Alcoholic cirrhosis of liver with ascites (principal); M54.2 Cervicalgia
CPT/HCPCS: 80053; 82150; 83690; 85025; 86704; 87340

== ENCOUNTER 2020-06-29 12:28 | Outpatient (CLI) | payer MEDICARE, MEDICAID | END 2020-06-29 12:29 | disposition EMS.NT | LOC: EMS 12:28 | DX: Z03.89 Encounter for observation for other suspected diseases and conditions ruled out (principal) ==

== ENCOUNTER 2020-12-02 09:21 | Outpatient (CLI) | payer MEDICARE, MEDICAID | END 2020-12-02 09:22 | disposition short-term general hospital (02) | LOC: EMS 09:21 | DX: R10.9 Unspecified abdominal pain (principal) | CPT/HCPCS: A0425; A0427 ==

== ENCOUNTER 2021-01-04 11:12 | Outpatient (CLI) | payer MEDICARE, MEDICAID | END 2021-01-04 11:13 | disposition short-term general hospital (02) | LOC: EMS 11:12 | DX: R10.9 Unspecified abdominal pain (principal); R19.7 Diarrhea, unspecified; R11.10 Vomiting, unspecified | CPT/HCPCS: A0425; A0427 ==

== ENCOUNTER 2021-01-27 03:38 | Outpatient (CLI) | payer MEDICARE, MEDICAID | END 2021-01-27 03:39 | disposition short-term general hospital (02) | LOC: EMS 03:38 | DX: R10.9 Unspecified abdominal pain (principal) | CPT/HCPCS: A0425; A0427 ==

== ENCOUNTER 2021-02-06 21:29 | Outpatient (CLI) | payer MEDICARE, MEDICAID | END 2021-02-06 21:30 | disposition short-term general hospital (02) | LOC: EMS 21:29 | DX: R10.30 Lower abdominal pain, unspecified (principal); N50.89 Other specified disorders of the male genital organs | CPT/HCPCS: A0425; A0429 ==

== ENCOUNTER 2021-02-12 02:53 | Outpatient (CLI) | payer MEDICARE, MEDICAID | END 2021-02-12 02:54 | disposition short-term general hospital (02) | LOC: EMS 02:53 | DX: R10.11 Right upper quadrant pain (principal); R10.32 Left lower quadrant pain; R10.31 Right lower quadrant pain | CPT/HCPCS: A0425; A0429 ==

== ENCOUNTER 2021-09-03 13:26 | Outpatient (CLI) | payer MEDICARE, MEDICAID | END 2021-09-03 13:27 | disposition short-term general hospital (02) | LOC: EMS 13:26 | DX: R10.11 Right upper quadrant pain (principal); R10.31 Right lower quadrant pain; R14.0 Abdominal distension (gaseous); R11.0 Nausea; R19.7 Diarrhea, unspecified | CPT/HCPCS: A0425; A0429; A0888 ==

== ENCOUNTER 2023-01-09 15:09 | Outpatient (CLI) | payer MEDICARE, MEDICAID | END 2023-01-09 23:59 | disposition short-term general hospital (02) | LOC: EMS 15:09 | DX: R51.9 Headache, unspecified (principal); R20.0 Anesthesia of skin | CPT/HCPCS: A0425; A0429; A0888 ==

== ENCOUNTER 2023-02-12 12:52 | Outpatient (CLI) | payer MEDICARE, MEDICAID | END 2023-02-12 23:59 | disposition short-term general hospital (02) | LOC: EMS 12:52 | DX: R09.89 Other specified symptoms and signs involving the circulatory and respiratory systems (principal); R07.89 Other chest pain; F41.9 Anxiety disorder, unspecified | CPT/HCPCS: A0425; A0429 ==